=== PATIENT | female | born 1970 | race Two or more races ===

== ENCOUNTER 2021-11-25 09:15 | Outpatient (CLI) | payer BC | END 2021-11-25 23:59 | disposition home or self-care (01) | LOC: WOU 09:15 | PROVIDERS: ATTEND Podiatrist Foot & Ankle Surgery | DX: S92.505D Nondisplaced unspecified fracture of left lesser toe(s), subsequent encounter for fracture with routine healing (principal); X58.XXXD Exposure to other specified factors, subsequent encounter; R26.2 Difficulty in walking, not elsewhere classified; M79.675 Pain in left toe(s); Z79.899 Other long term (current) drug therapy | CPT/HCPCS: G0463 ==